=== PATIENT | female | born 1980 | race Caucasian/White ===

== ENCOUNTER 2018-06-14 20:46 | Inpatient (IN) | payer OTHER ==
[2018-06-14] MEDS ORDERED: Sodium Chloride 0.9% 1,000 ML IV ONE (21:09)
--- NOTE | 2018-06-14 21:09 | C.PDOC ---
History Of Present Illness 37 year old female presents to the ER with a complaint of coughing up rust colored sputum for the past few days. Patient had a CXR done earlier today which showed a right lower lobe pneumonia. She has a significant PMHx of PE, antiphospholipid antibodies, and lupus; she is on prednisone and 2 anticoagulants. Denies fever, chills, nausea, or vomiting. Time Seen by Provider: 06/14/18 21:01 Chief Complaint (Nursing): Cough, Cold, Congestion History Per: Patient History/Exam Limitations: no limitations Onset/Duration Of Symptoms: Days Current Symptoms Are (Timing): Still Present Initiating Event: Upper Respiratory Illness Quality: Dull Exacerbating Factor(s): Exertion, Coughing Current Respiratory Medications: See Home Med List Severity: Moderate Pain Scale Rating Of: 4 Associated Symptoms: Productive Cough, Ankle/Leg Swelling. denies: Fever, Chills, Other (Nausea, vomiting) Reports Recently: Treated By A Physician Recent travel outside of the [place] States: No Additional History Per: Family Past Medical History Reviewed: Historical Data, Nursing Documentation, Vital Signs Vital Signs: Last Vital Signs Temp 98.1 F 06/14/18 20:53 Pulse 67 06/14/18 22:00 Resp 16 06/14/18 22:00 BP 126/73 06/14/18 22:00 Pulse Ox 100 06/14/18 22:00 - Medical History PMH: Anemia, Fibromyalgia Family History: States: No Known Family Hx - Social History Hx Tobacco Use: Yes (former smoker) Hx Alcohol Use: Yes (social) Hx Substance Use: No Review Of Systems Constitutional: Negative for: Fever, Chills Eyes: Negative for: Vision Change ENT: Negative for: Throat Pain Cardiovascular: Negative for: Chest Pain, Palpitations Respiratory: Positive for: Cough, Hemoptysis, SOB with Excertion, Sputum (Rust colored). Negative for: Shortness of Breath Gastrointestinal: Negative for: Nausea, Vomiting Genitourinary: Negative for: Dysuria Musculoskeletal: Negative for: Back Pain Skin: Negative for: Rash Neurological: Negative for: Weakness Psych: Negative for: Anxiety Physical Exam - Physical Exam Appears: Non-toxic, Other (Speaking in complete sentences) Skin: Warm, Dry Head: Normacephalic Eye(s): bilateral: Normal Inspection Oral Mucosa: Moist Gingiva: No Bleeding Neck: Trachea Midline, Supple Chest: Symmetrical, No Tenderness Cardiovascular: Rhythm Regular Respiratory: Decreased Breath Sounds, No Rales, Rhonchi (Scattered), No Wheezing Gastrointestinal/Abdominal: Soft, No Tenderness, Other (Obese) Back: Normal Inspection Extremity: Pedal Edema (Bilateral trace), No Calf Tenderness Extremity: Bilateral: Atraumatic, Normal Color And Temperature, Normal ROM Pulses: Left Dorsalis Pedis: Normal, Right Dorsalis Pedis: Normal Neurological/Psych: Oriented x3, Normal Speech Gait: Steady ED Course And Treatment - Laboratory Results Result Diagrams: 06/14/18 21:37 06/14/18 21:37 O2 Sat by Pulse Oximetry: 95 (Room air) Pulse Ox Interpretation: Normal Progress Note: Blood work and urinalysis ordered. Duoneb and IV fluids administered. Disposition Discussed With DrNila: Roosevelt Childers Comment: accepted the pt on his service and took over the care at 11:34 PM Doctor Will See Patient In The: Hospital Counseled Patient/Family Regarding: Studies Performed, Diagnosis - Disposition Disposition: HOSPITALIZED Disposition Time: 21:09 Condition: FAIR Forms: [employer] (Nauruan) - POA Present On Arrival: None - Clinical Impression Clinical Impression: Pneumonia, Hemoptysis, Dyspnea - Scribe Statement The provider has reviewed the documentation as recorded by the Scribheather Mtz All medical record entries made by the Scribe were at my direction and personally dictated by me. I have reviewed the chart and agree that the record accurately reflects my personal performance of the history, physical exam, medical decision making, and the department course for this patient. I have also personally directed, reviewed, and agree with the discharge instructions and disposition. Decision To Admit - Pt Status Changed To: Hospital Disposition Of: Inpatient - Admit Certification Admit to Inpatient:: After my assessment, the patient will require hospitalization for at least two midnights. This is because of the severity of symptoms shown, intensity of services needed, and/or the medical risk in this patient being treated as an outpatient. - InPatient: Physician Admission Certification: I certify that this patient requires 2 or more midnights of care for the following reason:: After my assessment, the patient will require hospitalization for at least two midnights. This is because of the severity of symptoms shown, intensity of services needed, and/or the medical risk in this patient being treated as an outpatient. - . Bed Request Type: Regular Admitting Physician: Roosevelt Childers Patient Diagnosis: Pneumonia, Hemoptysis, Dyspnea
[2018-06-14 21:28] LABS: ABG ALLEN TEST P; ARTERIAL BLOOD GAS HCO3 22.9 mmol/L (21-28); ARTERIAL BLOOD GAS O2 SAT 98.9 % (95-98); ARTERIAL BLOOD GAS PCO2 28 mm/Hg (35-45); ARTERIAL BLOOD GAS PH 7.46 (7.35-7.45); ARTERIAL BLOOD GAS PO2 98 mm/Hg (80-100); ARTERIAL BLOOD GAS TCO2 20.8 mmol/L (22-28)
[2018-06-14 21:48] LABS: INR 1.6; PROTHROMBIN TIME 17.7 SECONDS (9.7-12.2)
[2018-06-14 21:50] LABS: BASO # 0.1 K/uL (0.0-0.2); BASO % 0.9 % (0.0-2.0); EOS % 0.4 % (0.0-4.0); HEMOGLOBIN 10.9 g/dL (11.0-16.0); LYMPH # 1.6 K/uL (1.0-4.3); LYMPH % 21.3 % (20.0-40.0); MEAN CELL VOLUME 76.2 fL (81.0-99.0); MEAN CORPUSCULAR HEMOGLOBIN 24.5 pg (27.0-31.0); MEAN CORPUSCULAR HGB CONC 32.2 g/dL (33.0-37.0); MEAN PLATELET VOLUME 7.6 fL (7.2-11.7); MONO # 0.5 K/uL (0.0-0.8); MONO % 6.4 % (0.0-10.0); NEUT # 5.5 K/uL (1.8-7.0); PLATELET COUNT 266 K/uL (130-400); RBC 4.44 Mil/uL (3.80-5.20); RED CELL DISTRIBUTION WIDTH 25.7 % (11.5-14.5); WHITE BLOOD COUNT 7.7 K/uL (4.8-10.8)
[2018-06-14 21:53] LABS: ALB/GLOB RATIO 1.4 (1.0-2.1); ALBUMIN 3.8 g/dL (3.5-5.0); ALT/SGPT 29 U/L (9-52); AST/SGOT 14 U/L (14-36); BLOOD UREA NITROGEN 19 mg/dL (7-17); CALCIUM 9.1 mg/dl (8.6-10.4); GFR AFRICAN-AMERICAN > 60; GFR NON-AFRICAN AMERICAN > 60
[2018-06-14] MEDS: Albuterol-Ipratrop 3 mg / 0.5 (3 ml) UD IH SCH ×2 (21:54→22:51)
[2018-06-14 22:00] LABS: SQUAMOUS EPITHIAL 7 /hpf (0-5); URINE BILIRUBIN NEGATIVE (NEGATIVE); URINE BLOOD 3+ (NEGATIVE); URINE CLARITY Hazy (Clear); URINE COLOR Yellow (YELLOW); URINE GLUCOSE (UA) NORMAL (Normal); URINE PROTEIN NEGATIVE (NEGATIVE); URINE UROBILINOGEN NORMAL mg/dL (0.2-1.0)
[2018-06-14 22:03] LABS: URINE LEUKOCYTE ESTERASE 1+ Leu/uL (Negative)
[2018-06-14] MEDS ORDERED: Iohexol 300 100 ML IJ ONE (22:08)
[2018-06-14] MEDS ORDERED: Albuterol-Ipratrop 3 mg / 0.5 (3 ml) UD ONE (22:50)
[2018-06-14] MEDS ORDERED: Vancomycin 1 GM 1 GM/250 ML BAG IVPB SCH (23:30)
[2018-06-14 23:41] LABS: ANISOCYTOSIS MODERATE; LYMPHOCYTE 22 % (20-40); MONOCYTE 9 % (0-10); NEUTROPHIL 69 % (50-75); OVALOCYTES MODERATE; PLATELET ESTIMATE NORMAL (NORMAL); POLYCHROMIC SLIGHT; TOTAL CELLS COUNTED 100
[2018-06-14 23:42] LABS: TEARDROP CELLS SLIGHT
[2018-06-14 23:43] LABS: MICROCYTOSIS MODERATE
[2018-06-14] MEDS ORDERED: Vancomycin 1 gm/NS 200 ml 1 GM/200 ML BAG IVPB STA (23:57)
[2018-06-15] MEDS ORDERED: Gentamicin 450 MG in Sodium Chloride 0.9% 250 ML IVPB STA
[2018-06-15] MEDS ORDERED: Oxycodone/Acetaminophen 5/325 mg Tab PO PRN (00:18)
[2018-06-15] MEDS ORDERED: Home Med 1 UNIT (Zolpidem [Ambien] 10 MG) PO PRN (00:18)
[2018-06-15] MEDS ORDERED: NAPROXEN 500 MG PO PRN (00:18)
[2018-06-15] MEDS: Budesonide 0.5 mg/2 ml Inhal Susp UD INH SCH ×3 (01:32→19:59)
[2018-06-15] MEDS: Albuterol 0.083% Inhal Sol (2.5 mg/3 mL) UD INH SCH ×5 (04:00→19:58)
--- NOTE | 2018-06-15 10:19 | CT ---
Date of service: 06/14/2018 PROCEDURE: CT Chest with contrast (Pulmonary Angiogram) HISTORY: Shortness of breath. Hemoptysis. COMPARISON: None available. TECHNIQUE: Axial computed tomography images were obtained of the chest in the pulmonary arterial phase of enhancement. Coronal and sagittal reformatted images were created and reviewed. Radiation dose: Total exam DLP = 436 mGy-cm. This CT exam was performed using one or more of the following dose reduction techniques: Automated exposure control, adjustment of the mA and/or kV according to patient size, and/or use of iterative reconstruction technique. FINDINGS: PULMONARY ARTERIES: No definite central pulmonary embolism. More limited evaluation of the segmental and subsegmental branches. For example, a small questionable filling defect within a subsegmental branch of the right lung on series 601 image 87 may be artifact. Additional questionable filling defect within a segmental branch of the right upper lobe pulmonary artery on series 2, image 68 again may be artifact. Repeat study and or correlation with V/Q scan may be helpful if clinically indicated. AORTA: No acute findings. No thoracic aortic aneurysm. LUNGS: Moderate scattered ground-glass opacities. PLEURAL SPACES: Unremarkable. No effusion or pneumothorax. HEART: Unremarkable. No cardiomegaly. No significant pericardial effusion. LYMPH NODES: No lymphadenopathy. BONES, CHEST WALL: Unremarkable. No fracture or destructive lesion OTHER FINDINGS: Suboptimal timing of the bolus limits evaluation. Mild varices within the chest and upper abdominal wall. Small fat containing dermal lesion in the left posterior chest wall. Fatty infiltration of the liver. Mild splenomegaly. IMPRESSION: No definite central pulmonary embolism. More limited evaluation of the segmental and subsegmental branches. For example, a small questionable filling defect within a subsegmental branch of the right lung on series 601 image 87 may be artifact. Additional questionable filling defect within a segmental branch of the right upper lobe pulmonary artery on series 2, image 68 again may be artifact. Repeat study and or correlation with V/Q scan may be helpful if clinically indicated. Ground-glass opacities, nonspecific. These findings may include underlying infiltrate versus edema versus hemorrhage versus interstitial lung disease versus pneumonitis versus additional etiology. Clinical correlation. Post treatment interval followup is recommended to ensure resolution and exclude underlying lesions. Additional findings as above. These findings were preliminarily reported at 11:23 p.m. on 06/14/[address] Melvin Kat from [employer].
[2018-06-15] MEDS: Pantoprazole 40 mg EC Tab PO SCH (10:26)
--- NOTE | 2018-06-15 14:42 | CP.PCM.CON ---
History of Present Illness - History of Present Illness History of Present Illness: 37 year old female presents to the ER with a complaint of coughing up rust colored sputum for the past few days. Patient had a CXR done earlier today which showed a right lower lobe pneumonia. She has a significant PMHx of PE, antiphospholipid antibodies, and lupus; she is on prednisone and 2 anticoagulants. Denies fever, chills, nausea, or vomiting.n No travel No ill contacts CT chest not highly suggestive of PE has had PE in past Review of Systems - Review of Systems All systems: reviewed and no additional remarkable complaints except - Constitutional Constitutional: As Per HPI - EENT Eyes: absent: As Per HPI, Blind Spots, Blurred Vision, Change in Vision, Decreased Night Vision, Diplopia, Discharge, Dry Eye, Exophthalmos, Floaters, Irritation, Itchy Eyes, Loss of Peripheral Vision, Pain, Photophobia, Requires Corrective Lenses, Sees Flashes, Spots in Vision, Tunnel Vision, Other Visual Disturbances, Loss of Vision, Other Ears: absent: As Per HPI, Decreased Hearing, Ear Discharge, Ear Pain, Tinnitus, Abnormal Hearing, Disequilibrium, Dizziness, Other Nose/Mouth/Throat: absent: As Per HPI, Epistaxis, Nasal Congestion, Nasal Discharge, Nasal Obstruction, Nasal Trauma, Nose Pain, Post Nasal Drip, Sinus Pain, Sinus Pressure, Bleeding Gums, Change in Voice, Dental Pain, Dry Mouth, Dysphagia, Halitosis, Hoarsness, Lip Swelling, Mouth Lesions, Mouth Pain, Odynophagia, Sore Throat, Throat Swelling, Tongue Swelling, Facial Pain, Neck Pain, Neck Mass, Other - Breasts Breasts: absent: As Per HPI, Change in Shape, Mass, Pain, Nipple Discharge, Nipple Inversion, Skin Changes, Swelling, Other - Cardiovascular Cardiovascular: As Per HPI - Respiratory Respiratory: As Per HPI - Gastrointestinal Gastrointestinal: Abdominal Pain. absent: As Per HPI, Belching, Bloating, Change in Bowel Habits, Change in Stool Character, Coffee Ground Emesis, Constipation, Cramping, Diarrhea, Dyspepsia, Dysphagia, Early Satiety, Excessive Flatus, Fecal Incontinence, Heartburn, Hematemesis, Hematochezia, Loose Stools, Melena, Nausea, Odynophagia, Temesmus, Vomiting, Other - Genitourinary Genitourinary: absent: As Per HPI, Change in Urinary Stream, Difficulty Urinating, Dysuria, Flank Pain, Hematuria, Pyuria, Nocturia, Urinary Incontinence, Urinary Frequency, Urinary Hesitance, Urinary Urgency, Voiding Freq/Small Amts, Freq UTI, Hx Renal/Bladder Calculi, Hx /Renal Surgery, Bladder Distension, Other - Reproductive: Female Reproductive:Female: absent: As Per HPI, Amenorrhea, Amenorrhea/ Control, Currently Menstual, Cycle <21 Days, Cycle >35 Days, Cycle Variable, Menses 1-7 Days, Menses >/= 8 Days, Menses Variable, Cycle > 4 Weeks Between, No Menses for 6 Months, Heavy Menses, Light Menses, Normal Menses, Spotting Between Cycles , S/P Hysterectomy, Menopausal, Post Menopausal, Premenarche, Abnormal Vaginal Bleeding, Dysmenorrhea, Dyspareunia, Genital Lesions, Genital Pruritis, Pelvic Pain, Prolapse Symptoms, Sexual Dysfunction, Vaginal Discharge, Vaginal Dryness , Vaginal Odor, Vaginal Pruritis, Other - Menstruation Menstruation: absent: As Per HPI, Amenorrhea, Amenorrhea/ Control, Currently Menstual, Cycle <21 Days, Cycle >35 Days, Cycle Variable, Menses 1-7 Days, Menses >/= 8 Days, Menses Variable, Cycle > 4 Weeks Between, No Menses for 6 Months, Heavy Menses, Light Menses, Normal Menses, Spotting Between Cycles , S/P Hysterectomy, Menopausal, Post Menopausal, Premenarche, Abnormal Vaginal Bleeding, Dysmenorrhea, Other - Musculoskeletal Musculoskeletal: absent: As Per HPI, Abnormal Gait, Arthralgias, Atrophy, Back Pain, Deformity, Joint Swelling, Limited Range of Motion, Loss of Height, Muscle Cramps, Muscle Weakness, Myalgias, Neck Pain, Numbness, Radiating Pain into Limb, Stiffness, Tingling, Other - Integumentary Integumentary: absent: As Per HPI, Acne, Alopecia, Bleeding Lesions, Change in Hair, Change in Nails, Change in Pigmentation, Changing Lesions, Dry Skin, Erythema, Furuncle, Hirsutism, Lesions, New Lesions, Non-Healing Lesions, Photosensitivity, Pruritus, Rash, Skin Pain, Skin Ulcer, Sores, Striae, Swelling , Unusual Bruising, Wounds, Jaundice, Other - Neurological Neurological: absent: As Per HPI, Abnormal Gait, Abnormal Hearing, Abnormal Movements, Abnormal Speech, Behavioral Changes, Burning Sensations, Confusion, Convulsions, Disequilibrium, Dizziness, Numbness, Focal Weakness, Frequent Falls , Headaches, Lack of Coordination, Loss of Vision, Memory Loss, Paresthesias, Radicular Pain, Restless Legs, Sensory Deficit, Syncope, Tingling, Tremor, Vertigo, Weakness, Other Visual Disturbances, Other - Psychiatric Psychiatric: absent: As Per HPI, Abnormal Sleep Pattern, Anhedonia, Anxiety, Auditory Hallucinations, Behavioral Changes, Change in Appetite, Change in Libido, Confusion, Depression, Difficulty Concentrating, Hallucinations, Homicidal Ideation, Hopelessness, Irritability, Memory Loss, Mood Swings, Panic Attacks, Paranoia, Suicidal Ideation, Visual Hallucinations, Tactile Hallucinations, Other - Endocrine Endocrine: absent: As Per HPI, Change in Body Appearance, Change in Libido, Cold Intolorance, Deepening of Voice, Excessive Sweating, Fatigue, Flushing, Heat Intolorance, Increase in Ring/Shoe/Hat Size, Palpitations, Polydipsia, Polyphagia, Polyuria, Other - Hematologic/Lymphatic Hematologic: absent: As Per HPI, Easy Bleeding, Easy Bruising, Lymphadenopathy, Other Past Patient History - Past Medical History & Family History Past Medical History?: Yes - Past Social History Smoking Status: Never Smoked - CARDIAC Hx Cardiac Disorders: No - PULMONARY Hx Respiratory Disorders: Yes Other/Comment: pulmonary embolism - NEUROLOGICAL Hx Neurological Disorder: No - HEENT Hx HEENT Problems: No - RENAL Hx Chronic Kidney Disease: No - ENDOCRINE/METABOLIC Hx Endocrine Disorders: Yes Hx Systemic Lupus Erythematosus: Yes Other/Comment: anti phospholipid syndrome - HEMATOLOGICAL/ONCOLOGICAL Hx Blood Disorders: Yes Hx Anemia: Yes - INTEGUMENTARY Hx Dermatological Problems: No - MUSCULOSKELETAL/RHEUMATOLOGICAL Hx Musculoskeletal Disorders: No Hx Falls: No - GASTROINTESTINAL Hx Gastrointestinal Disorders: No - GENITOURINARY/GYNECOLOGICAL Hx Genitourinary Disorders: No - PSYCHIATRIC Hx Psychophysiologic Disorder: No Hx Substance Use: No - SURGICAL HISTORY Hx Surgeries: Yes Other/Comment: lower extremity stents (2013) and iliac stents (2017). fibroids removal (2013) - ANESTHESIA Hx Anesthesia: Yes Hx Anesthesia Reactions: No Hx Malignant Hyperthermia: No Has any member of the family had a problem w/ anesthesia?: No Meds Allergies/Adverse Reactions: Allergies Allergy/AdvReac Type Severity Reaction Status Date / Time amoxicillin Allergy Verified 06/14/18 20:57 heparin Allergy Verified 06/14/18 20:57 - Medications Medications: Current Medications Albuterol Sulfate (Albuterol 0.083% Inhal Lakesha (2.5 Mg/3 Ml) Ud) 2.5 mg INH RQ4 [facility] Last Admin: 06/15/18 11:31 Dose: 2.5 mg Alprazolam (Xanax) 1 mg PO DAILY PRN PRN Reason: Anxiety Budesonide (Pulmicort Respules) 0.5 mg INH RQ12 [facility] Last Admin: 06/15/18 07:51 Dose: 0.5 mg Clopidogrel Bisulfate (Plavix) 75 mg PO DAILY [facility] Last Admin: 06/15/18 10:25 Dose: 75 mg Dexamethasone (Decadron) 1 mg PO DAILY [facility] Last Admin: 06/15/18 10:26 Dose: 1 mg Azithromycin 500 mg/ Sodium (Chloride) 250 mls @ 250 mls/hr IVPB DAILY [facility] PRN Reason: Protocol Naproxen (Anaprox Ds) 550 mg PO BID PRN PRN Reason: pain Oxycodone/Acetaminophen (Percocet 5/325 Mg Tab) 1 tab PO Q6 PRN PRN Reason: pain Stop: 06/18/18 00:19 Last Admin: 06/15/18 01:39 Dose: 1 tab Pantoprazole Sodium (Protonix Ec Tab) 40 mg PO DAILY [facility] Last Admin: 06/15/18 10:26 Dose: 40 mg Rivaroxaban (Xarelto) 20 mg PO DAILY [facility] Last Admin: 06/15/18 10:26 Dose: 20 mg Sertraline HCl (Zoloft) 100 mg PO DAILY [facility] Zolpidem Tartrate (Ambien) 5 mg PO HS PRN PRN Reason: Insomnia Last Admin: 06/15/18 01:39 Dose: 5 mg Physical Exam - Constitutional Appears: Non-toxic, Chronically Ill - Head Exam Head Exam: NORMOCEPHALIC - Eye Exam Eye Exam: PERRL - ENT Exam ENT Exam: Mucous Membranes Dry, Normal Oropharynx - Neck Exam Neck exam: Negative for: Lymphadenopathy - Respiratory Exam Respiratory Exam: Decreased Breath Sounds, Rhonchi - Cardiovascular Exam Cardiovascular Exam: REGULAR RHYTHM, +S1, +S2 - GI/Abdominal Exam GI & Abdominal Exam: Diminished Bowel Sounds, Soft. absent: Tenderness - Rectal Exam Rectal Exam: Deferred - Exam Exam: NORMAL INSPECTION - Extremities Exam Extremities exam: Negative for: pedal edema - Back Exam Back exam: absent: CVA tenderness (L), CVA tenderness (R) - Neurological Exam Neurological exam: Alert, CN II-XII Intact, Oriented x3, Reflexes Normal - Psychiatric Exam Psychiatric exam: Normal Mood - Skin Skin Exam: Dry, Intact Results - Vital Signs Recent Vital Signs: Last Vital Signs Temp 98.2 F 06/15/18 07:53 Pulse 85 06/15/18 07:53 Resp 20 06/15/18 07:53 BP 99/58 L 06/15/18 07:53 Pulse Ox 96 06/15/18 07:53 - Labs Result Diagrams: 06/14/18 21:37 06/14/18 21:37 Labs: Laboratory Results - last 24 hr 06/14/18 06/14/18 06/14/18 21:23 21:37 21:37 WBC 7.7 RBC 4.44 Hgb 10.9 L Hct 33.9 L MCV 76.2 L D MCH 24.5 L MCHC 32.2 L RDW 25.7 H Plt Count 266 D MPV 7.6 Neut % (Auto) 71.0 Lymph % (Auto) 21.3 Hale % (Auto) 6.4 Eos % (Auto) 0.4 Baso % (Auto) 0.9 Neut # (Auto) 5.5 Lymph # (Auto) 1.6 Hale # (Auto) 0.5 Eos # (Auto) 0.0 Baso # (Auto) 0.1 Neutrophils % (Manual) 69 Lymphocytes % (Manual) 22 Monocytes % (Manual) 9 Platelet Estimate Normal Polychromasia Slight Anisocytosis (manual) Moderate Microcytosis (manual) Moderate Tear Drop Cells Slight Ovalocytes Moderate PT 17.7 H INR 1.6 APTT 35 H Puncture Site Lr pCO2 28 L pO2 98 HCO3 22.9 ABG pH 7.46 H ABG Total CO2 20.8 L ABG O2 Saturation 98.9 H ABG Base Excess -2.6 L Jared Test P ABG Potassium 2.3 L* Sodium 146.0 Chloride 116.0 H Glucose 75 Lactate 1.1 Crit Value Called To Dr sal[place] Crit Value Called By Ga.rt Crit Value Read Back Y Blood Gas Notified Time 2117 Potassium Carbon Dioxide Anion Gap BUN Creatinine Est GFR ( Amer) Est GFR (Non-Af Amer) Random Glucose Calcium Phosphorus Magnesium Total Bilirubin AST ALT Alkaline Phosphatase Total Protein Albumin Globulin Albumin/Globulin Ratio Procalcitonin Arterial Blood Potassium 2.3 L* Urine Color Urine Clarity Urine pH Ur Specific [place] Urine Protein Urine Glucose (UA) Urine Ketones Urine Blood Urine Nitrate Urine Bilirubin Urine Urobilinogen Ur Leukocyte Esterase Urine WBC (Auto) Urine RBC (Auto) Ur Squamous Epith Cells 06/14/18 06/14/18 06/14/18 21:37 21:49 23:55 WBC RBC Hgb Hct MCV MCH MCHC RDW Plt Count MPV Neut % (Auto) Lymph % (Auto) Hale % (Auto) Eos % (Auto) Baso % (Auto) Neut # (Auto) Lymph # (Auto) Hale # (Auto) Eos # (Auto) Baso # (Auto) Neutrophils % (Manual) Lymphocytes % (Manual) Monocytes % (Manual) Platelet Estimate Polychromasia Anisocytosis (manual) Microcytosis (manual) Tear Drop Cells Ovalocytes PT INR APTT Puncture Site pCO2 pO2 HCO3 ABG pH ABG Total CO2 ABG O2 Saturation ABG Base Excess Jared Test ABG Potassium Sodium 138 Chloride 100 Glucose Lactate Crit Value Called To Crit Value Called By Crit Value Read Back Blood Gas Notified Time Potassium 4.1 Carbon Dioxide 30 Anion Gap 12 BUN 19 H Creatinine 0.7 Est GFR ( Amer) > 60 Est GFR (Non-Af Amer) > 60 Random Glucose 104 Calcium 9.1 Phosphorus 3.5 Magnesium 2.0 Total Bilirubin 0.4 AST 14 ALT 29 Alkaline Phosphatase 41 Total Protein 6.5 Albumin 3.8 Globulin 2.7 Albumin/Globulin Ratio 1.4 Procalcitonin Arterial Blood Potassium Urine Color Yellow Urine Clarity Hazy Urine pH 5.0 Ur Specific [place] 1.028 Urine Protein Negative Urine Glucose (UA) Normal Urine Ketones Negative Urine Blood 3+ H Urine Nitrate Negative Urine Bilirubin Negative Urine Urobilinogen Normal Ur Leukocyte Esterase 1+ H Urine WBC (Auto) 9 H Urine RBC (Auto) 22 H Ur Squamous Epith Cells 7 H 06/15/18 00:28 WBC RBC Hgb Hct MCV MCH MCHC RDW Plt Count MPV Neut % (Auto) Lymph % (Auto) Hale % (Auto) Eos % (Auto) Baso % (Auto) Neut # (Auto) Lymph # (Auto) Hale # (Auto) Eos # (Auto) Baso # (Auto) Neutrophils % (Manual) Lymphocytes % (Manual) Monocytes % (Manual) Platelet Estimate Polychromasia Anisocytosis (manual) Microcytosis (manual) Tear Drop Cells Ovalocytes PT INR APTT Puncture Site pCO2 pO2 HCO3 ABG pH ABG Total CO2 ABG O2 Saturation ABG Base Excess Jared Test ABG Potassium Sodium Chloride Glucose Lactate Crit Value Called To Crit Value Called By Crit Value Read Back Blood Gas Notified Time Potassium Carbon Dioxide Anion Gap BUN Creatinine Est GFR ( Amer) Est GFR (Non-Af Amer) Random Glucose Calcium Phosphorus Magnesium Total Bilirubin AST ALT Alkaline Phosphatase Total Protein Albumin Globulin Albumin/Globulin Ratio Procalcitonin < 0.05 L Arterial Blood Potassium Urine Color Urine Clarity Urine pH Ur Specific [place] Urine Protein Urine Glucose (UA) Urine Ketones Urine Blood Urine Nitrate Urine Bilirubin Urine Urobilinogen Ur Leukocyte Esterase Urine WBC (Auto) Urine RBC (Auto) Ur Squamous Epith Cells Assessment & Plan (1) Lupus (systemic lupus erythematosus) Status: Acute (2) Antiphospholipid antibody syndrome Status: Acute (3) Antiphospholipid antibody syndrome Status: Acute (4) Dyspnea Status: Acute (5) Hemoptysis Status: Acute (6) Pneumonia Status: Acute - Assessment and Plan (Free Text) Assessment: possible pneumonia- viral atypical early bacterial ? IV antibiotics ordered pending cultures and serologies Plan: Dr Lipscomb to evaluate
[2018-06-15] MEDS: Azithromycin 500 MG in Sodium Chloride 0.9% 250 ML IVPB SCH (15:03)
[2018-06-15] MEDS: Aztreonam 1 GM in Sodium Chloride 0.9% 100 ML IVPB SCH (19:57)
[2018-06-15 20:52] LABS: LEGIONELLA AG URINE NEGATIVE (NEGATIVE)
[2018-06-15 21:09] LABS: INFLUENZA A B NEGATIVE FOR FLU A/B (NEGATIVE)
[2018-06-15 21:13] LABS: MYCOPLASMA PNEUMONIAE IGM NEGATIVE (NEGATIVE)
[2018-06-15] MEDS: Promethazine DM 12.5 mg-30 mg/10 ml Syrup PO SCH (21:19)
[2018-06-15] MEDS: Naproxen 550 mg Tab PO PRN (21:21)
[2018-06-15 21:57] LABS: HEPATITIS B SURFACE AG Negative (NEGATIVE)
[2018-06-15 22:03] LABS: HEPATITIS A IGM NEGATIVE (NEGATIVE); HEPATITIS B CORE AB NEGATIVE (NEGATIVE)
[2018-06-15 22:15] LABS: HEPATITIS C ANTIBODY NEGATIVE (NEGATIVE)
[2018-06-16] MEDS: Vancomycin 1 gm/NS 200 ml 1 GM/200 ML BAG IVPB SCH (00:13)
[2018-06-16] MEDS: Albuterol 0.083% Inhal Sol (2.5 mg/3 mL) UD INH SCH ×6 (00:21→20:41)
[2018-06-16] MEDS: Aztreonam 1 GM in Sodium Chloride 0.9% 100 ML IVPB SCH ×3 (02:39→19:23)
[2018-06-16] MEDS: Promethazine DM 12.5 mg-30 mg/10 ml Syrup PO SCH ×4 (02:39→21:01)
[2018-06-16 08:16] LABS: BASO % 0.5 % (0.0-2.0); EOS # 0.1 K/uL (0.0-0.7); EOS % 2.5 % (0.0-4.0); HEMOGLOBIN 9.9 g/dL (11.0-16.0); LYMPH # 1.8 K/uL (1.0-4.3); LYMPH % 32.7 % (20.0-40.0); MEAN CELL VOLUME 76.9 fL (81.0-99.0); MEAN CORPUSCULAR HEMOGLOBIN 24.3 pg (27.0-31.0); MEAN CORPUSCULAR HGB CONC 31.6 g/dL (33.0-37.0); MEAN PLATELET VOLUME 7.6 fL (7.2-11.7); MONO # 0.4 K/uL (0.0-0.8); NEUT # 3.2 K/uL (1.8-7.0); NEUT % 57.3 % (50.0-75.0); RBC 4.08 Mil/uL (3.80-5.20); RED CELL DISTRIBUTION WIDTH 25.2 % (11.5-14.5); WHITE BLOOD COUNT 5.6 K/uL (4.8-10.8)
--- NOTE | 2018-06-16 08:40 | RAD ---
Date of service: 06/15/2018 HISTORY: hemoptysis COMPARISON: Chest CT with contrast 06/14/2018. TECHNIQUE: Chest PA and lateral FINDINGS: LUNGS: Body habitus limits penetration both bases an early infiltrates are not excluded both bases. Remaining lung geronimo appear clear. PLEURA: No significant pleural effusion identified. No pneumothorax apparent. CARDIOVASCULAR: Normal. OSSEOUS STRUCTURES: No significant abnormalities. VISUALIZED UPPER ABDOMEN: Normal. OTHER FINDINGS: None. IMPRESSION: Borderline bibasilar infiltrates with remaining lung geronimo clear. No pleural effusion or pulmonary vascular congestion.
[2018-06-16 08:52] LABS: ALB/GLOB RATIO 1.2 (1.0-2.1); ALBUMIN 3.2 g/dL (3.5-5.0); ALT/SGPT 25 U/L (9-52); AST/SGOT 10 U/L (14-36); BLOOD UREA NITROGEN 12 mg/dL (7-17); CALCIUM 8.4 mg/dl (8.6-10.4); GFR AFRICAN-AMERICAN > 60; GFR NON-AFRICAN AMERICAN > 60
[2018-06-16] MEDS: Pantoprazole 40 mg EC Tab PO SCH (09:53)
[2018-06-16] MEDS: Azithromycin 500 MG in Sodium Chloride 0.9% 250 ML IVPB SCH (09:54)
[2018-06-16] MEDS: Budesonide 0.5 mg/2 ml Inhal Susp UD INH SCH ×2 (11:26→20:40)
[2018-06-16] MEDS: FAMOTIDINE 20 MG PO SCH (17:35)
[2018-06-16] MEDS: Naproxen 550 mg Tab PO PRN (21:01)
[2018-06-17] MEDS: Vancomycin 1 gm/NS 200 ml 1 GM/200 ML BAG IVPB SCH ×2 (00:10→23:39)
[2018-06-17] MEDS: Albuterol 0.083% Inhal Sol (2.5 mg/3 mL) UD INH SCH ×6 (00:55→20:09)
[2018-06-17] MEDS: Aztreonam 1 GM in Sodium Chloride 0.9% 100 ML IVPB SCH ×2 (02:46→11:03)
[2018-06-17] MEDS: Promethazine DM 12.5 mg-30 mg/10 ml Syrup PO SCH ×4 (02:46→21:32)
[2018-06-17] MEDS: Budesonide 0.5 mg/2 ml Inhal Susp UD INH SCH ×2 (07:49→20:08)
[2018-06-17] MEDS: FAMOTIDINE 20 MG PO SCH ×2 (09:30→17:18)
[2018-06-17] MEDS: Azithromycin 500 MG in Sodium Chloride 0.9% 250 ML IVPB SCH (09:32)
[2018-06-17] MEDS: Potassium Chloride 20 mEq ER Tab PO SCH (11:02)
[2018-06-17 13:02] LABS: BASO % 0.7 % (0.0-2.0); EOS # 0.1 K/uL (0.0-0.7); EOS % 1.1 % (0.0-4.0); HEMOGLOBIN 10.7 g/dL (11.0-16.0); LYMPH # 1.2 K/uL (1.0-4.3); LYMPH % 20.3 % (20.0-40.0); MEAN CELL VOLUME 77.6 fL (81.0-99.0); MEAN CORPUSCULAR HEMOGLOBIN 24.1 pg (27.0-31.0); MEAN PLATELET VOLUME 7.5 fL (7.2-11.7); MONO # 0.3 K/uL (0.0-0.8); MONO % 4.7 % (0.0-10.0); NEUT # 4.4 K/uL (1.8-7.0); NEUT % 73.2 % (50.0-75.0); NRBC % 0.1 % (0.0-2.0); RBC 4.45 Mil/uL (3.80-5.20); RED CELL DISTRIBUTION WIDTH 25.4 % (11.5-14.5)
[2018-06-17 13:19] LABS: ALB/GLOB RATIO 1.5 (1.0-2.1); ALBUMIN 3.4 g/dL (3.5-5.0); ALT/SGPT 31 U/L (9-52); AST/SGOT 10 U/L (14-36); BLOOD UREA NITROGEN 13 mg/dL (7-17); CALCIUM 7.8 mg/dl (8.6-10.4); GFR AFRICAN-AMERICAN > 60; GFR NON-AFRICAN AMERICAN > 60
--- NOTE | 2018-06-17 16:04 | CP.PCM.PN ---
Subjective - Date & Time of Evaluation Date of Evaluation: 06/17/18 Time of Evaluation: 08:00 - Subjective Subjective: denies fever chills c/o cough with some blood streaked sputum cultures and serologies thus far negative Objective - Vital Signs/Intake and Output Vital Signs (last 24 hours): Temp Pulse Resp BP Pulse Ox 98.3 F 95 H 20 114/75 95 06/17/18 15:00 06/17/18 15:00 06/17/18 15:00 06/17/18 15:00 06/17/18 15:00 Intake and Output: 06/17/18 06/17/18 06:59 18:59 Intake Total 350 Balance 350 - Medications Medications: Current Medications Albuterol Sulfate (Albuterol 0.083% Inhal Lakesha (2.5 Mg/3 Ml) Ud) 2.5 mg INH RQ4 [facility] Last Admin: 06/17/18 11:37 Dose: 2.5 mg Alprazolam (Xanax) 1 mg PO DAILY PRN PRN Reason: Anxiety Budesonide (Pulmicort Respules) 0.5 mg INH RQ12 [facility] Last Admin: 06/17/18 07:49 Dose: Not Given Clopidogrel Bisulfate (Plavix) 75 mg PO DAILY [facility] Last Admin: 06/17/18 09:30 Dose: 75 mg Dexamethasone (Decadron) 1 mg PO DAILY [facility] Last Admin: 06/17/18 09:30 Dose: 1 mg Famotidine (Pepcid) 20 mg PO BID [facility] Last Admin: 06/17/18 09:30 Dose: 20 mg Azithromycin 500 mg/ Sodium (Chloride) 250 mls @ 250 mls/hr IVPB DAILY [facility] PRN Reason: Protocol Last Admin: 06/17/18 09:32 Dose: 250 mls/hr Aztreonam 1 gm/ Sodium (Chloride) 100 mls @ 200 mls/hr IVPB Q8H [facility] PRN Reason: Protocol Last Admin: 06/17/18 11:03 Dose: 200 mls/hr Vancomycin/Sodium Chloride (Vancomycin 1 Gm/Ns 200 Ml) 1 gm in 200 mls @ 133 mls/hr IVPB Q24H [facility] PRN Reason: Protocol Stop: 06/21/18 00:01 Last Admin: 06/17/18 00:10 Dose: 133 mls/hr Naproxen (Anaprox Ds) 550 mg PO BID PRN PRN Reason: pain Last Admin: 06/16/18 21:01 Dose: 550 mg Oxycodone/Acetaminophen (Percocet 5/325 Mg Tab) 1 tab PO Q6 PRN PRN Reason: pain Stop: 06/18/18 00:19 Last Admin: 06/15/18 01:39 Dose: 1 tab Potassium Chloride (K-Dur 20 Meq Er Tab) 20 meq PO DAILY [facility] Last Admin: 06/17/18 11:02 Dose: 20 meq Promethazine HCl/Dextromethorphan (Phenergan Dm Syrup) 10 ml PO Q6H [facility] Last Admin: 06/17/18 14:22 Dose: 10 ml Rivaroxaban (Xarelto) 20 mg PO DAILY [facility] Last Admin: 06/17/18 09:30 Dose: 20 mg Sertraline HCl (Zoloft) 100 mg PO DAILY [facility] Last Admin: 06/17/18 09:30 Dose: 100 mg Zolpidem Tartrate (Ambien) 5 mg PO HS PRN PRN Reason: Insomnia Last Admin: 06/16/18 21:01 Dose: 5 mg - Labs Labs: 06/17/18 12:43 06/17/18 12:43 PT 17.7 SECONDS (9.7-12.2) H 06/14/18 21:37 INR 1.6 06/14/18 21:37 APTT 35 SECONDS (21-34) H 06/14/18 21:37 - Constitutional Appears: Non-toxic, Chronically Ill - Head Exam Head Exam: NORMOCEPHALIC - Eye Exam Eye Exam: absent: Scleral icterus - ENT Exam ENT Exam: Mucous Membranes Dry - Neck Exam Neck Exam: absent: Lymphadenopathy - Respiratory Exam Respiratory Exam: Decreased Breath Sounds - Cardiovascular Exam Cardiovascular Exam: REGULAR RHYTHM - GI/Abdominal Exam GI & Abdominal Exam: Distended - Rectal Exam Rectal Exam: Deferred - Exam Exam: NORMAL INSPECTION - Extremities Exam Extremities Exam: absent: Pedal Edema - Back Exam Back Exam: absent: CVA tenderness (L), CVA tenderness (R) - Neurological Exam Neurological Exam: Alert, Awake, Oriented x3 - Psychiatric Exam Psychiatric exam: Normal Mood - Skin Skin Exam: Dry Assessment and Plan (1) Lupus (systemic lupus erythematosus) Status: Acute (2) Antiphospholipid antibody syndrome Status: Acute (3) Antiphospholipid antibody syndrome Status: Acute (4) Dyspnea Status: Acute (5) Hemoptysis Status: Acute (6) Pneumonia Status: Acute - Assessment and Plan (Free Text) Assessment: cultures and serologies negative thus far procalcitonin levels wnl await afb smears d/c azacTAM
[2018-06-17] MEDS: Naproxen 550 mg Tab PO PRN (21:33)
[2018-06-18] MEDS: Albuterol 0.083% Inhal Sol (2.5 mg/3 mL) UD INH SCH ×4 (00:47→12:20)
[2018-06-18] MEDS: Promethazine DM 12.5 mg-30 mg/10 ml Syrup PO SCH ×3 (02:14→13:01)
[2018-06-18 07:44] VITALS: O2SAT 96
[2018-06-18] MEDS: Budesonide 0.5 mg/2 ml Inhal Susp UD INH SCH (08:11)
[2018-06-18] MEDS: Potassium Chloride 20 mEq ER Tab PO SCH (09:30)
[2018-06-18] MEDS: FAMOTIDINE 20 MG PO SCH ×2 (09:31→17:26)
[2018-06-18] MEDS: Azithromycin 500 MG in Sodium Chloride 0.9% 250 ML IVPB SCH (09:33)
--- NOTE | 2018-06-18 12:13 | CP.PCM.PN ---
Subjective - Date & Time of Evaluation Date of Evaluation: 06/18/18 Time of Evaluation: 09:00 - Subjective Subjective: LESS COUGH LESS SOB LESS HEMOPTYSIS [employer] Objective - Vital Signs/Intake and Output Vital Signs (last 24 hours): Temp Pulse Resp BP Pulse Ox 98.1 F 71 20 108/71 96 06/18/18 07:00 06/18/18 07:00 06/18/18 07:00 06/18/18 07:00 06/18/18 07:00 - Medications Medications: Current Medications Albuterol Sulfate (Albuterol 0.083% Inhal [place] (2.5 Mg/3 Ml) Ud) 2.5 mg INH RQ4 [facility] Last Admin: 06/18/18 08:11 Dose: Not Given Alprazolam (Xanax) 1 mg PO DAILY PRN PRN Reason: Anxiety Budesonide (Pulmicort Respules) 0.5 mg INH RQ12 [facility] Last Admin: 06/18/18 08:11 Dose: Not Given Clopidogrel Bisulfate (Plavix) 75 mg PO DAILY [facility] Last Admin: 06/18/18 09:30 Dose: 75 mg Dexamethasone (Decadron) 1 mg PO DAILY [facility] Last Admin: 06/18/18 09:30 Dose: 1 mg Famotidine (Pepcid) 20 mg PO BID [facility] Last Admin: 06/18/18 09:31 Dose: 20 mg Azithromycin 500 mg/ Sodium (Chloride) 250 mls @ 250 mls/hr IVPB DAILY [facility] PRN Reason: Protocol Last Admin: 06/18/18 09:33 Dose: 250 mls/hr Vancomycin/Sodium Chloride (Vancomycin 1 Gm/Ns 200 Ml) 1 gm in 200 mls @ 133 mls/hr IVPB Q24H [facility] PRN Reason: Protocol Stop: 06/21/18 00:01 Last Admin: 06/17/18 23:39 Dose: 133 mls/hr Naproxen (Anaprox Ds) 550 mg PO BID PRN PRN Reason: pain Last Admin: 06/17/18 21:33 Dose: 550 mg Potassium Chloride (K-Dur 20 Meq Er Tab) 20 meq PO DAILY [facility] Last Admin: 06/18/18 09:30 Dose: 20 meq Promethazine HCl/Dextromethorphan (Phenergan Dm Syrup) 10 ml PO Q6H [facility] Last Admin: 06/18/18 09:28 Dose: 10 ml Rivaroxaban (Xarelto) 20 mg PO DAILY [facility] Last Admin: 06/18/18 09:30 Dose: 20 mg Sertraline HCl (Zoloft) 100 mg PO DAILY [facility] Last Admin: 06/18/18 09:30 Dose: 100 mg Zolpidem Tartrate (Ambien) 5 mg PO HS PRN PRN Reason: Insomnia Last Admin: 06/17/18 21:33 Dose: 5 mg - Labs Labs: 06/17/18 12:43 06/17/18 12:43 PT 17.7 SECONDS (9.7-12.2) H 06/14/18 21:37 INR 1.6 06/14/18 21:37 APTT 35 SECONDS (21-34) H 06/14/18 21:37 - Constitutional Appears: Non-toxic, Chronically Ill - Head Exam Head Exam: NORMOCEPHALIC - Eye Exam Eye Exam: absent: Scleral icterus - ENT Exam ENT Exam: Normal External Ear Exam - Neck Exam Neck Exam: absent: Lymphadenopathy - Respiratory Exam Respiratory Exam: Decreased Breath Sounds - Cardiovascular Exam Cardiovascular Exam: REGULAR RHYTHM - GI/Abdominal Exam GI & Abdominal Exam: Distended, Soft - Rectal Exam Rectal Exam: Deferred - Exam Exam: NORMAL INSPECTION Assessment and Plan (1) Lupus (systemic lupus erythematosus) Status: Acute (2) Antiphospholipid antibody syndrome Status: Acute (3) Antiphospholipid antibody syndrome Status: Acute (4) Dyspnea Status: Acute (5) Hemoptysis Status: Acute (6) Pneumonia Status: Acute - Assessment and Plan (Free Text) Assessment: LESS COUGH LESS SOB LESS HEMOPTYSIS [employer]
--- NOTE | 2018-06-18 15:41 | CP.PCM.HP ---
History of Present Illness - History of Present Illness History of Present Illness: Venessa is a 37-year-old female who has a pre-admission diagnosis of a SLE, antiphospholipid syndrome acute embolism into common iliac veins bilaterally, as well as also having herniated lumbar discs producing low back pain. She had been having on-and-off episodes of coughing and shortness of breath since the beginning of the year, which, after failing to respond to the usual respiratory medications, responded well to a short course of steroids. Thus it was assumed that it was her rheumatologic issue which was causing her coughing and shortness of breath. Over the last 2 to 3 days patient had developed worsening of her respiratory issues and she had called me on and sent me a picture of her sputum which was rust colored. I sent her for a stat CXR that afternoon which was read as pneumonia of the the right middle lobe. Called her and discussed her situation and because of her multiple medical issues as well as a chronic steroid therapy we deemed it important that she at least be evaluated at the ER to ascertain if she indeed needed admission, inasmuch as any anti-pseudomonal non-PCN abx would have to be given IV. Patient went to [facility] and was seen by Dr. Oropeza who got a CT angiogram of the chest and a slew of bloodwork. WBC, CMP, and all other tests were essentially normal. He thought that the sputum was more blood streaked and pt was admitted with a dx of hemoptysis, r/o TB. CT angiogram was negative for PE, but there were multiple interstitial disease lesions seen throughout parenchyma. Because of the patient's shortness of breath with minimal exertion as well as notices patient was admitted for isolation and further management until a more definitive diagnosis can be determined based on observation of the patient in a controlled clinical environment since pt could be a public health hazard given the presumptive diagnosis. Past Patient History - Past Medical History & Family History Past Medical History?: Yes - Past Social History Smoking Status: Never Smoked - CARDIAC Hx Cardiac Disorders: No - PULMONARY Hx Respiratory Disorders: Yes Other/Comment: pulmonary embolism - NEUROLOGICAL Hx Neurological Disorder: No - HEENT Hx HEENT Problems: No - RENAL Hx Chronic Kidney Disease: No - ENDOCRINE/METABOLIC Hx Endocrine Disorders: Yes Hx Systemic Lupus Erythematosus: Yes Other/Comment: anti phospholipid syndrome - HEMATOLOGICAL/ONCOLOGICAL Hx Blood Disorders: Yes Hx Anemia: Yes - INTEGUMENTARY Hx Dermatological Problems: No - MUSCULOSKELETAL/RHEUMATOLOGICAL Hx Musculoskeletal Disorders: No Hx Falls: No - GASTROINTESTINAL Hx Gastrointestinal Disorders: No - GENITOURINARY/GYNECOLOGICAL Hx Genitourinary Disorders: No - PSYCHIATRIC Hx Psychophysiologic Disorder: No Hx Substance Use: No - SURGICAL HISTORY Hx Surgeries: Yes Other/Comment: lower extremity stents (2013) and iliac stents (2017). fibroids removal (2012) - ANESTHESIA Hx Anesthesia: Yes Hx Anesthesia Reactions: No Hx Malignant Hyperthermia: No Has any member of the family had a problem w/ anesthesia?: No Meds Allergies/Adverse Reactions: Allergies Allergy/AdvReac Type Severity Reaction Status Date / Time amoxicillin Allergy Verified 06/14/18 20:57 heparin Allergy Verified 06/14/18 20:57 Results - Vital Signs Recent Vital Signs: Last Vital Signs Temp 98.1 F 06/18/18 07:00 Pulse 71 06/18/18 07:00 Resp 20 06/18/18 07:00 BP 108/71 06/18/18 07:00 Pulse Ox 96 06/18/18 07:00 - Labs Result Diagrams: 06/17/18 12:43 06/17/18 12:43 Assessment & Plan (1) Hemoptysis Status: Acute (2) Dyspnea Status: Acute (3) Lupus (systemic lupus erythematosus) Status: Acute (4) Antiphospholipid antibody syndrome Status: Acute (5) Pneumonia Status: Acute
[2018-06-18 15:58] VITALS: PULSE 79
--- NOTE | 2018-06-18 18:04 | CP.PCM.PN ---
Subjective - Date & Time of Evaluation Date of Evaluation: 06/18/18 Time of Evaluation: 17:45 Objective - Vital Signs/Intake and Output Vital Signs (last 24 hours): Temp Pulse Resp BP Pulse Ox 98.3 F 79 20 102/63 96 06/18/18 15:57 06/18/18 15:57 06/18/18 15:57 06/18/18 15:57 06/18/18 15:57 - Medications Medications: Current Medications Albuterol Sulfate (Albuterol 0.083% Inhal [place]ha (2.5 Mg/3 Ml) Ud) 2.5 mg INH RQ4 [facility] Last Admin: 06/18/18 12:20 Dose: Not Given Alprazolam (Xanax) 1 mg PO DAILY PRN PRN Reason: Anxiety Budesonide (Pulmicort Respules) 0.5 mg INH RQ12 [facility] Last Admin: 06/18/18 08:11 Dose: Not Given Clopidogrel Bisulfate (Plavix) 75 mg PO DAILY [facility] Last Admin: 06/18/18 09:30 Dose: 75 mg Dexamethasone (Decadron) 1 mg PO DAILY [facility] Last Admin: 06/18/18 09:30 Dose: 1 mg Famotidine (Pepcid) 20 mg PO BID [facility] Last Admin: 06/18/18 17:26 Dose: 20 mg Azithromycin 500 mg/ Sodium (Chloride) 250 mls @ 250 mls/hr IVPB DAILY [facility] PRN Reason: Protocol Last Admin: 06/18/18 09:33 Dose: 250 mls/hr Vancomycin/Sodium Chloride (Vancomycin 1 Gm/Ns 200 Ml) 1 gm in 200 mls @ 133 mls/hr IVPB Q24H [facility] PRN Reason: Protocol Stop: 06/21/18 00:01 Last Admin: 06/17/18 23:39 Dose: 133 mls/hr Naproxen (Anaprox Ds) 550 mg PO BID PRN PRN Reason: pain Last Admin: 06/17/18 21:33 Dose: 550 mg Potassium Chloride (K-Dur 20 Meq Er Tab) 20 meq PO DAILY [facility] Last Admin: 06/18/18 09:30 Dose: 20 meq Promethazine HCl/Dextromethorphan (Phenergan Dm Syrup) 10 ml PO Q6H [facility] Last Admin: 06/18/18 13:01 Dose: 10 ml Rivaroxaban (Xarelto) 20 mg PO DAILY [facility] Last Admin: 06/18/18 09:30 Dose: 20 mg Sertraline HCl (Zoloft) 100 mg PO DAILY [facility] Last Admin: 06/18/18 09:30 Dose: 100 mg Zolpidem Tartrate (Ambien) 5 mg PO HS PRN PRN Reason: Insomnia Last Admin: 06/17/18 21:33 Dose: 5 mg - Labs Labs: 06/17/18 12:43 06/17/18 12:43 PT 17.7 SECONDS (9.7-12.2) H 06/14/18 21:37 INR 1.6 06/14/18 21:37 APTT 35 SECONDS (21-34) H 06/14/18 21:37 Assessment and Plan (1) Hemoptysis Status: Acute (2) Dyspnea Status: Acute (3) Lupus (systemic lupus erythematosus) Status: Acute (4) Antiphospholipid antibody syndrome Status: Acute (5) Pneumonia Status: Acute
[2018-06-18 18:43] VITALS: BP 100/60; RESP 16; TEMP 98
== END 2018-06-18 19:00 | disposition home or self-care (01) | DRG 194 ==
LOC: C.ER 20:46 → C.9E 23:32 → C.5S 06-15 00:51
PROVIDERS: ADMIT Family Medicine; ATTEND Family Medicine
DX: J18.9 Pneumonia, unspecified organism (principal); D68.61 Antiphospholipid syndrome; M32.9 Systemic lupus erythematosus, unspecified; M51.26 Other intervertebral disc displacement, lumbar region; M79.7 Fibromyalgia; Z86.711 Personal history of pulmonary embolism; Z87.891 Personal history of nicotine dependence